=== PATIENT | male | born 1980 | race Caucasian/White ===

== ENCOUNTER 2024-10-02 08:11 | Emergency (ER) | payer OTHER, SELFPAY ==
[2024-10-02] VITALS (16 sets, daily range): BP systolic 120–144; BP diastolic 82–90; PULSE 74–98; RESP 14–25; TEMP 36.4; O2SAT 98–100
--- NOTE | ~2024-10-02 | XR_ITS ---
EXAMINATION: XR chest 2V, 10/02/2024 8:45 CDT HISTORY: chest pain LT C.P. N/V INTERMITTANT X 4 DAYS COMPARISON: No comparisons available. Technique: 2 views obtained. Findings: The lungs are clear, no effusion. No pneumothorax. Heart is normal size. Mediastinal and hilar contours are within normal limits. Bony thorax no acute abnormality. Impression: No acute cardiopulmonary abnormality. Reviewed, dictated and finalized at location A. Impression: No acute cardiopulmonary abnormality.
--- NOTE | 2024-10-02 08:12 | ECG_ITS ---
Test Date: 2024-10-02 08:18:11 Measurements Intervals [place] Rate: 88 P: 57 TN: 158 QRS: 20 QRSD: 93 T: 42 QT: 322 QTc: 391 Interpretive Statements SINUS RHYTHM CONSIDER INFERIOR INFARCT, AGE INDETERMINATE BASELINE ARTIFACT- I, II, III ABNORMAL ECG No previous ECG available for comparison Electronically Signed On 10-02-2024 08:21:38 CDT by Marcus Kohler D.O.
--- OUTSIDE RECORDS SUMMARY | 2024-10-02 08:13 | XMS_ITS | Encounter Summary ---
Author Organization [facility] Address [address] [place] [address] Phone Care Team Providers Care Tripe Cooker Name Role Phone Laura Quiroz APRN, COLLAR TAILOR Primary Care Provider Iván Dinero Primary Care Provider Arcelia Merlos APRN, PACHECO Unavailable Reason for Visit * Reason Comments Medication Refill Encounter Details Date Type Department Care Team (Late st Contact Info) Description 02/02/2022 Refill [facility] - Primary Care - [place] [address] [place] [address] Laura Quiroz APRN, COLLAR TAILOR [address] [place] [address] Medication Refill Social History Tobacco Use Types Packs/Day Years Used Date Smoking Tobacco: Every Day Cigarettes 0.5 3.1 Started: 09/08/2021 Smokeless Tobacco: Former Alcohol Use Standard Drinks/Week Comments Yes 0 (1 standard drink = 0.6 oz pur e alcohol) Socially Sex and Gender Information Value Date Recorded Sex Assigned at Not on file Legal Sex Male 9:07 AM PLANNING AIDE Gender Identity Not on file Sexual Orientation Not on file COVID-19 Exposure Response Date Recorded In the last 10 days, have yo u been in contact with someone who was confirmed or suspected to have Coronavirus/COVID-19? No / Unsure 01/03/2022 8:03 AM PLANNING AIDE documented as of this encounter Miscellaneous Notes * Telephone Encounter - Iza Bautista RN - 02/02/2022 3:53 PM CST Medication failed the protocol, provider to review and approve the medication order if appropriate. Requested Prescriptions Pending Prescriptions Disp Refills busPIRone (BUSPAR) 10 MG Tablet [Pharmacy Med Name: BUSPIRONE HCL 10 MG TABLET] 90 Tablet 0 Sig: TAKE 1 TABLET BY MOUTH 3 TIMES DAILY FOR 30 DAYS. Buspirone (6 Month Refill Only) Protocol Failed - 02/02/2022 3:47 PM Failed - Patient has established therapy with Buspirone for at least 6 months Passed - Visit with relevant provider in past 6 months or upcoming 90 days Recent Visits Date Type Provider Dept 01/03/22 Office Visit Laura Quiroz APRN, PACHECO [facility] 12/01/21 Office Visit Iván Dinero, SHAVON [facility] 09/15/21 Office Visit Laura Quiroz APRN, PACHECO [facility] Showing recent visits within past 182 days and meeting all other requirements Future Appointments No visits were found meeting these conditions. Showing future appointments within next 90 days and meeting all other requirements Passed - Has an encounter in the past 6 months with a depression or anxiety visit diagnosis NING AIDE documented in this encounter Plan of Treatment Upcoming Encounters Date Type Department Care Team (Late st Contact Info) Description 10/04/2024 3:30 PM CDT Lab [facility] - [place] [address] [place] [address] [facility] 12/05/2024 3:30 PM CDT Lab [facility] - [place] [address] [place] [address] [facility] 12/12/2024 3:45 PM PLANNING AIDE Office Visit [facility] - [place] [address] [place] [address] Iván Dinero, PAC [address] [place] [address] documented as of this encounter Visit Diagnoses Diagnosis Anxiety Anxiety state, unspecified Depression, unspecified depression type documented in this encounter Additional Health Concerns Infection Onset Date Last Indicated Resolved Time COVID - 19 02/02/2024 02/02/2024 02/02/2024 1:21 PM PLANNING AIDE Respiratory Rule-Out 02/02/2024 02/02/2024 024 1:23 PM PLANNING AIDE documented as of this encounter Care Teams Tripe Cooker Relationship Specialty Start Date End Date Laura Quiroz, CRYPTOLOGIC SUPPORT SPECIALIST, COLLAR TAILOR [address] [place] [address] PCP - General Advanced Practice Nurse 09/15/21 Iván Dinero, PAC [address] [place] [address] PCP - General Physician Graduate Assistant 10/03/22 Arcelia Merlos APRN, COLLAR TAILOR [address] [address] Nurse Practitioner Advanced Practice Nurse 10/13/22 documented as of this encounter
--- OUTSIDE RECORDS SUMMARY | 2024-10-02 08:13 | XMS_ITS | Patient Health Record ---
Author Organization [facility] Address [address] [place] [address] Care Team Providers Care Crabbing Machine Operator Name Role Phone Bandar Gonsalez Unavailable [phone] Reason For Referral No Information Medications Medication SIG (Take, Route, Frequency, Duration) Notes Start Date End Date Status metFORMIN HCl 500 MG Tablet Oral 11/21/2019 Active DULoxetine HCl 60 MG Capsule Delayed Release Particles Oral 11/21/2019 Active hydrOXYzine HCl 25 MG Tablet Oral 11/21/2019 Active Omeprazole *Pick strength-form from OMsignal for eRX* 11/21/2019 Active Social History Social History Additional Details Category Social Info Options Details Migrated Social History Migrated Social History Alcohol Intake: None 11/21/2019,Tobacco Years: Former smoker 10/30/2019,Smoking Status: 15 11/21/2019 Plan Of Treatment No Information Insurance Providers Payer Name Payer Address Payer Phone Subscriber Number Group Number Insured Name Patient Relationship to Insured Coverage Start Date Coverage End Date [facility] [address] [place] [address] [id number] SHANI ZAIDI Self - patient is the insured
--- OUTSIDE RECORDS SUMMARY | 2024-10-02 08:13 | XMS_ITS | Encounter Summary ---
Author Organization [facility] Address [address] [place] [address] Phone Care Team Providers Care Chief Pharmacist Name Role Phone Iván Dinero Primary Care Provider [phone] Arcelia Merlos APRN, PERSONAL COMPUTER NETWORK ENGINEER Unavailable Reason for Visit * Reason Onset Date Comments Medication Refill Constipation 01/12/2024 Encounter Details Date Type Department Care Team (Late st Contact Info) Description 01/12/2024 Nurse Triage [facility] - Primary Care - [place] [address] [place] [address] Iván Dinero, SHAVON [address] [place] [address] Medication Refill; Constipation Social History Tobacco Use Types Packs/Day Years Used Date Smoking Tobacco: Former Cigarettes 0.5 3.1 S tarted: 09/08/2021 Smokeless Tobacco: Former Alcohol Use Standard Drinks/Week Comments Not Currently 0 (1 standard drink = 0.6 oz pur e alcohol) Socially [employer] Utilities Answer Date Recorded In the past 12 months has [employer], gas, oil, or water company threatened to shut off services in your home? Patient declined 09/03/2023 Social Connection and Isolation Panel Answer Date Recorded In a typical week, how many times do you talk on the phone with family, friends, or neighbors? Patient declined 09/03/2023 How often do you get togethe r with friends or relatives? Patient declined 09/03/2023 How often do you attend worship or sikhism serv ices? Patient declined 09/03/2023 Do you belong to any clubs o r organizations such as worship groups, unions, fraternal or athletic groups, or school groups? Patient declined 09/03/2023 How often do you attend meet ings of the clubs or organizations you belong to? Patient declined 09/03/2023 Are you , , di vorced, , never , or living with a partner? Patient declined 09/03/2023 AUDIT-C Answer Date Recorded Q1: How often do you have a drink containing alc ohol? Patient declined 09/03/2023 Q2: How many drinks containi ng alcohol do you have on a typical day when you are drinking? Patient declined 09/03/2023 Q3: How often do you have si x or more drinks on one occasion? Patient declined 09/03/2023 Overall Financial Resource Strain (CARDIA) Answe r Date Recorded How hard is it for you to pa y for the very basics like food, housing, medical care, and heating? Patient declined 09/03/2023 PHQ-2 Answer Date Recorded Total Score - Questions 1-9 0 10/0 05/2023 [facility] - Occupational Stress Questionnaire Answer Date Recorded Do you feel stress - tense, restless, nervous, or anxious, or unable to sleep at night because your mind is troubled all the time - these days? Patient declined 09/03/2023 Exercise Vital Sign Answer Date Recorde d On average, how many days pe r week do you engage in moderate to strenuous exercise (like a brisk walk)? Patient declined On average, how many minutes do you engage in exercise at this level? Patient declined 09/03/2023 Hunger Vital Sign Answer Date Recorded Within the past 12 months, y ou worried that your food would run out before you got the money to buy more. Patient declined Within the past 12 months, t he food you bought just didn't last and you didn't have money to get more. Patient declined PRAPARE - Transportation Answer Date Re corded In the past 12 months, has l ack of transportation kept you from medical appointments or from getting medications? Patient declined 09/03/2023 In the past 12 months, has l ack of transportation kept you from meetings, work, or from getting things needed for daily living? Patient declined 09/03/2023 Housing Stability Vital Sign Answer Davonte e Recorded In the last 12 months, was t here a time when you were not able to pay the mortgage or rent on time? Patient declined 09/03/19 24 In the past 12 months, how m any times have you moved where you were living? 1 09/03/2023 At any time in the past 12 m [facility], were you homeless or living in a chcf (including now)? Patient declined 09/03/2023 Sexually Active Control Partners Comments Yes Female Sex and Gender Information Value Date Recorded Sex Assigned at Not on file Legal Sex Male 9:07 AM ACTIVITY AIDE Gender Identity Not on file Sexual Orientation Not on file documented as of this encounter Miscellaneous Notes * Telephone Encounter - Carrie Murillo RN - 01/12/2024 1:34 PM CST SITUATION: Constipation and returning phone call BACKGROUND: Caller contacting PCP office. Per chart review, - See notes below - See last office visit 12/04/2023 ASSESSMENT: Symptom Description / Location: Iván Dinero PAC's recommendations relayed to patient Iván Dinero, PAC Rx increased to 7.5mg dose. Please make patient aware. Patient verbalized understanding Reports worsening constipation This morning had a small bowel movement that was like ruth Reports before today there was Over a week since vomiting. Reports vomiting twice last week. Reports intermittent abdominal pain and states it's like gas pain. Denies abdominal pain today. Treatment / Response: Miralax Reports not much relief RECOMMENDATION: Caller agreeable to being seen, but is requesting to wait and be seen outside of disposition despite education provided. Patient reports working late today and will be unable to come into the office this afternoon. Options of Prompt/urgent care and emergency department offered to patient. Patient declined at this time. Care advice provided per triage guideline. Caller verbalized understanding. Appointment Scheduled. All Patient Appointments Provider Department Dept Phone 01/15/2024 2:15 PM Iván Dinero [facility] - Primary Care [facility] [phone] 02/28/2024 4:00 PM [facility] - Primary Care - [place] [phone] 03/06/2024 4:00 PM Iván Dinero [facility] Primary [facility] - [place] [phone] Encounter routed to provider high priority to notify. Discussed utilizing [employer] to: E-check in prior to upcoming appointment, send a message to provider containing image for review, and test results. Link text to patient for [employer] set up. - See care advice and disposition for Guideline. First positive answer recorded, all responses to prior questions were negative. If symptoms increase, change or if new symptoms develop, call your health care provider or call back. Recommendations were based on caller information and is not a diagnosis. Verified and reviewed all triage information with caller. Reason for Disposition Rectal pain or fullness from fecal impaction (rectum full of stool) and NOT better after SITZ bath,suppository or enema Protocols used: [id number]-A-LD VITY AIDE * Telephone Encounter - Carrie Dutta RN - 01/12/2024 9:27 AM ACTIVITY AIDE Attempted to phone patient to relay PCP message. No answer. Voicemail left to call the office. VITY AIDE * Telephone Encounter - Iván Dinero PAC - 01/12/2024 9:23 AM CST Rx increased to 7.5mg dose. Please make patient aware. VITY AIDE * Telephone Encounter - Carrie Dutta RN - 01/12/2024 8:00 AM ACTIVITY AIDE SHOULD THIS BE INCREASED? Per nursing clinical judgement, provider to review and approve the medication(s) order(s) if appropriate. Requested Prescriptions Pending Prescriptions Disp Refills Mounjaro 5 MG/0.5ML Solution Auto-injector [Pharmacy Med Name: MOUNJARO 5 MG/0.5 ML PEN] Sig: INJECT 5 MG BY SUBCUTANEOUS ROUTE ONCE A WEEK. GLP-1 Agonists Protocol Passed - 01/12/2024 5:05 AM Passed - Lipid panel result on file in past 12 months LDL Date Value Ref Range Status 08/28/2023 65 <130 mg/dL Final HDL CHOLESTEROL Date Value Ref Range Status 08/28/2023 35 (L) >40 mg/dL Final CHOLESTEROL Date Value Ref Range Status 08/28/2023 141 <200 mg/dL Final TRIGLYCERIDES Date Value Ref Range Status 08/28/2023 205 (H) <150 mg/dL Final VLDL Date Value Ref Range Status 08/28/2023 41 10 - 50 mg/dL Final CHOL/HDL RATIO Date Value Ref Range Status 08/28/2023 4.0 0.0 - 4.4 Final NON-HDL CHOLESTEROL Date Value Ref Range Status 08/28/2023 106 <130 mg/dL Final Passed - Visit with relevant provider in past 6 months or upcoming 90 days Recent Visits Date Type Provider Dept 12/04/23 Office Visit Iván Dinero, PAC [facility] 11/10/23 Office Visit Kari Long, B2B SALES CONSULTANT, PERSONAL COMPUTER NETWORK ENGINEER [facility] 09/07/23 Office Visit Iván Dinero, PAC [facility] 08/31/23 Office Visit Iván Dinero, PAC [facility] Showing recent visits within past 182 days and meeting all other requirements Future Appointments Date Type Provider Dept 02/28/24 Appointment Lab, [facility] 03/06/24 Appointment Iván Dinero [facility] Showing future appointments within next 90 days and meeting all other requirements Passed - HgA1C result on record in past 6 months HGB-A1C Date Value Ref Range Status 11/24/2023 6.2 (H) 4.0 - 6.0 % Final Passed - GFR on record in past 6 months GFR, EST. NONAFRICAN Date Value Ref Range Status 11/24/2023 >60 >=60 Final VITY AIDE documented in this encounter Plan of Treatment Upcoming Encounters Date Type Department Care Team (Late st Contact Info) Description 10/04/2024 3:30 PM CDT Lab [facility] - [place] [address] [place] [address] [facility] 12/05/2024 3:30 PM CDT Lab [facility] [address] [place] [address] [facility] 12/12/2024 3:45 PM ACTIVITY AIDE Office Visit [facility] - [place] [address] [place] [address] Iván Dinero PAC [address] [place] [address] documented as of this encounter Visit Diagnoses Diagnosis Type 2 diabetes mellitus with other specified complication, without long-term current use of insulin documented in this encounter Additional Health Concerns Infection Onset Date Last Indicated Resolved Time COVID - 19 02/02/2024 02/02/2024 02/02/2024 1:21 PM ACTIVITY AIDE Respiratory Rule-Out 02/02/2024 02/02/2024 024 1:23 PM ACTIVITY AIDE Assessment Noted Time PHQ-9 Depression Total Score: 0 11/10/19 24 10:02 AM CDT documented as of this encounter Care Teams Chief Pharmacist Relationship Specialty Start Date End Date Iván Dinero PAC [address] [place] [phone] PCP - General Physician Tool Machine Set Up Operator 10/03/22 Arcelia Merlos B2B SALES CONSULTANT, PERSONAL COMPUTER NETWORK ENGINEER [address] [address] Nurse Practitioner Advanced Practice Nurse 10/13/22 documented as of this encounter
--- OUTSIDE RECORDS SUMMARY | 2024-10-02 08:13 | XMS_ITS | Clinical Summary ---
Author Organization [facility] Address [address] [place] [phone] Care Team Providers Care Plate Embosser Name Role Phone Unavailable Primary Care Provider Unavailabl e Active Problems No known active problems Social History Tobacco Use Types Packs/Day Years Used Date Smoking Tobacco: Never Assessed Sex and Gender Information Value Date Recorded Sex Assigned at Not on file Legal Sex Male 3:31 PM CDT Gender Identity Not on file Sexual Orientation Not on file Last Filed Vital Signs Vital Sign Reading Time Taken Comments Blood Pressure 118/80 06/12/2023 2:24 PM CDT Pulse - - Temperature - - Respiratory Rate - - Oxygen Saturation - - Inhaled Oxygen Concentration - - Weight 125.6 kg (277 lb) 06/12/2023 2:24 PM CDT Height 180.3 cm (5' 11) 06/12/2023 2:24 PM CDT Body Mass Index 38.63 06/12/2023 2:24 PM CDT Plan of Treatment Health Maintenance Due Date Last Done Comments HPV VACCINES (1 - Male 3-dose series) 1996 DTAP/TDAP/TD VACCINES (1 - Tdap) 2000 HEPATITIS B VACCINES (1 of 3 - 19+ 3-dose series) 05/08 INFLUENZA VACCINE (#1) 2024 Insurance [employer]LE[employer]ANCE OPEN ACCESS
--- OUTSIDE RECORDS SUMMARY | 2024-10-02 08:13 | XMS_ITS | Encounter Summary ---
Author Organization [facility] Address [address] [place] [address] Phone Care Team Providers Care Revenue Field Agent Name Role Phone Iván Dinero Primary Care Provider [phone] Arcelia Merlos APRN, MAINTENANCE MECHANIC TELEPHONE Unavailable Encounter Details Date Type Department Care Team (Late st Contact Info) Description 08/31/2024 Results Follow-Up [facility] - Primary Care - [place] [address] [place] [address] Iván Dinero, PAC [address] [place] [address] HEMOGLOBIN A1C W/ ESTIMATED GLUCOSE, CMP (COMPREHENSIVE METABOLIC PANEL), LIPID PANEL, Additional followed-up results: 4 Social History Tobacco Use Types Packs/Day Years Used Date Smoking Tobacco: Former Cigarettes 0.5 3.1 S tarted: 09/08/2021 Smokeless Tobacco: Former Alcohol Use Standard Drinks/Week Comments Not Currently 0 (1 standard drink = 0.6 oz pur e alcohol) Socially [employer] Utilities Answer Date Recorded In the past 12 months has [employer], gas, oil, or water company threatened to [...] declined 09/03/2023 How often do you attend adventist or yarsani serv ices? Patient declined 09/03/2023 Do you belong to any clubs o r organizations such as adventist groups, unions, fraternal or athletic groups, or [...] Recorded Total Score - Questions 1-9 0 06/0 05/2024 [facility] - [facility]ational Stress Questionnaire Answer Date Recorded [...] any time in the past 12 m [facility], were you homeless or living in a intermediate (including now)? Patient declined 09/03/2023 Sexually Active Control Partners Comments Yes Female Sex and Gender Information Value Date Recorded Sex Assigned at Not on file Legal Sex Male 9:07 AM STOCK SUPERVISOR Gender Identity Not on file Sexual Orientation Not on file documented as of this encounter Plan of Treatment Upcoming Encounters Date Type Department Care Team (Late st Contact Info) Description 10/04/2024 3:30 PM CDT Lab [facility] - [place] [address] [place] [phone] [facility] 12/05/2024 3:30 PM CDT Lab [facility] - [place] [address] [place] [address] [facility] 12/12/2024 3:45 PM STOCK SUPERVISOR Office Visit [facility] - [place] [address] [place] [address] Iván Dinero PAC [address] [place] [address] documented as of this encounter Visit Diagnoses Not on filedocumented in this encounter Additional Health Concerns Assessment Noted Time PHQ-9 Depression Total Score: 0 07/11/19 25 2:03 PM CDT documented as of this encounter Care Teams Revenue Field Agent Relationship Specialty Start Date End Date Iván Dinero PAC [address] [place] [address] PCP - General Physician Supervisor Ovens 10/03/22 Arcelia Merlos APRN, MAINTENANCE MECHANIC TELEPHONE #[address] [address] Nurse Practitioner Advanced Practice Nurse 10/13/22 documented as of this encounter
--- OUTSIDE RECORDS SUMMARY | 2024-10-02 08:13 | XMS_ITS | Encounter Summary ---
Author Organization [facility] Address [address] [place] [address] Phone Care Team Providers Care Take Away Worker Name Role Phone Laura Quiroz APRN, PACHECO Primary Care Provider Iván Dinero Primary Care Provider [phone] Arcelia Merlos APRN, CNP Unavailable Reason for Visit * Reason Comments Medication Refill Encounter Details Date Type Department Care Team (Late st Contact Info) Description 09/08/2022 Refill [facility] - Primary Care - [place] [address] [place] [address] Laura Quiroz APRN, [employer] [address] [place] [address] Medication Refill Social History Tobacco Use Types Packs/Day Years Used Date Smoking Tobacco: Every Day Cigarettes 0.5 3.1 Started: 09/08/2021 Smokeless Tobacco: Former Alcohol Use Standard Drinks/Week Comments Yes 0 (1 standard drink = 0.6 oz pur e alcohol) Socially Sex and Gender Information Value Date Recorded Sex Assigned at Not on file Legal Sex Male 9:07 AM FEATHER STITCHER Gender Identity Not on file Sexual Orientation Not on file documented as of this encounter Miscellaneous Notes * Telephone Encounter - Iván Dinero PAC - 09/12/2022 1:47 PM CDT Rx request approved. * Telephone Encounter - Iza Bautista RN - 09/12/2022 11:49 AM CDT Medication failed the protocol, provider to review and approve the medication order if appropriate. Requested Prescriptions Pending Prescriptions Disp Refills buPROPion (WELLBUTRIN) 300 MG TABLET SR 24 HR XL tablet [Pharmacy Med Name: BUPROPION HCL XL 300 MGTABLET] 30 Tablet 5 Sig: TAKE 1 TABLET BY MOUTH EVERY DAY IN THE MORNING Bupropion (6 Month Refill Only) Protocol Failed - 09/08/2022 12:01 AM Failed - Visit with relevant provider in past 6 months or upcoming 90 days Recent Visits No visits were found meeting these conditions. Showing recent visits within past 182 days and meeting all other requirements Future Appointments Date Type Provider Dept 10/03/22 Appointment Iván Dinero PAC [facility] Showing future appointments within next 90 days and meeting all other requirements Failed - Has an encounter in the past 6 months with a depression or anxiety visit diagnosis Passed - Patient has established therapy with Bupropion for at least 6 months * Telephone Encounter - Iza Bautista RN - 09/12/2022 11:48 AM CDT Pt scheduled for transfer of care with Iávn Dinero on 10/03/22. * Telephone Encounter - Carrie Dutta RN - 09/09/2022 8:40 AM CDT Attempted to call patient, no answer at this time and voicemail is not set up. * Telephone Encounter - Iza Bautista RN - 09/08/2022 2:23 PM CDT Attempted to call pt to schedule a transfer of care appt, no answer, unable to LVM for pt to call back. documented in this encounter Plan of Treatment Upcoming Encounters Date Type Department Care Team (Late st Contact Info) Description 10/04/2024 3:30 PM CDT Lab [facility] [place] [address] [place] [phone] [facility] 12/05/2024 3:30 PM CDT Lab [facility] [place] [address] [place] [phone] [facility] 12/12/2024 3:45 PM FEATHER STITCHER Office Visit [facility] [place] [address] [place] [phone] Iván Dinero PAC [address] [place] [address] documented as of this encounter Visit Diagnoses Diagnosis Anxiety Anxiety state, unspecified Depression, unspecified depression type documented in this encounter Additional Health Concerns Infection Onset Date Last Indicated Resolved Time COVID - 19 02/02/2024 02/02/2024 02/02/2024 1:21 PM FEATHER STITCHER Respiratory Rule-Out 02/02/2024 02/02/2024 024 1:23 PM FEATHER STITCHER documented as of this encounter Care Teams Take Away Worker Relationship Specialty Start Date End Date Laura Quiroz, RESOLUTION REP, [employer] [address] [place] [address] PCP - General Advanced Practice Nurse 09/15/21 Iván Dinero, PAC [address] [place] [phone] PCP - General Physician Guidance Counselor 10/03/22 Arcelia Merlos APRN, [employer] [address] [place] [address] Nurse Practitioner Advanced Practice Nurse 10/13/22 documented as of this encounter
--- OUTSIDE RECORDS SUMMARY | 2024-10-02 08:13 | XMS_ITS | Encounter Summary ---
Author Organization [facility] Address [address] [place] [address] Phone Care Team Providers Care Gate Agent Name Role Phone Iván Dinero Primary Care Provider [phone] Arcelia Merlos APRN, PASTRY ARTIST Unavailable [phone] Reason for Visit * Reason Comments Medication Refill Encounter Details Date Type Department Care Team (Late st Contact Info) Description 11/20/2023 Refill [facility] - Primary Care - [place] [address] [place] [address] Iván Dinero, [facility] [address] [place] [address] Medication Refill Social History Tobacco Use Types Packs/Day Years Used Date Smoking Tobacco: Former Cigarettes 0.5 3.1 S tarted: 09/08/2021 Smokeless Tobacco: Former Alcohol Use Standard Drinks/Week Comments Not Currently 0 (1 standard drink = 0.6 oz pur e alcohol) Socially [facility] Utilities Answer Date Recorded In the past 12 months has [employer] electric, gas, oil, or water company threatened to [...] declined 09/03/2023 How often do you attend christian or holiness serv ices? Patient declined 09/03/2023 Do you belong to any clubs o r organizations such as christian groups, unions, fraternal or athletic groups, or [...] Score - Questions 1-9 0 10/0 05/2023 [facility] - Occupational Stress [...] any time in the past 12 m [facility], were you homeless or living in a prison (including now)? Patient declined 09/03/2023 Sexually Active Control Partners Comments Yes Female Sex and Gender Information Value Date Recorded Sex Assigned at Not on file Legal Sex Male 9:07 AM EXPLOSIVE TECHNICIAN Gender Identity Not on file Sexual Orientation Not on file documented as of this encounter Miscellaneous Notes * Telephone Encounter - Simone Baird RN - 11/20/2023 1:25 PM CDT discontinued on 09/05/2023 by Carrie Dutta RN for the following reason: Formulary change documented in this encounter Plan of Treatment Upcoming Encounters Date Type Department Care Team (Late st Contact Info) Description 10/04/2024 3:30 PM CDT Lab [facility] - [place] [address] [place] [phone] [facility] 12/05/2024 3:30 PM CDT Lab [facility] - [place] [address] [place] [phone] [facility] 12/12/2024 3:45 PM EXPLOSIVE TECHNICIAN Office Visit [facility] - [place] [address] [place] [phone] Iván Dinero, SHAVON [address] [place] [phone] documented as of this encounter Visit Diagnoses Diagnosis Anxiety and depression Dysthymic disorder documented in this encounter Additional Health Concerns Infection Onset Date Last Indicated Resolved Time COVID - 19 02/02/2024 02/02/2024 02/02/2024 1:21 PM EXPLOSIVE TECHNICIAN Respiratory Rule-Out 02/02/2024 02/02/2024 024 1:23 PM EXPLOSIVE TECHNICIAN Assessment Noted Time PHQ-9 Depression Total Score: 0 11/10/19 24 10:02 AM CDT documented as of this encounter Care Teams Gate Agent Relationship Specialty Start Date End Date Iván Dinero, PAC [address] [place] [address] PCP - General Physician Case Management Rn 10/03/22 Arcelia Merlos APRN, PASTRY ARTIST [address] [address] Nurse Practitioner Advanced Practice Nurse 10/13/22 documented as of this encounter
--- OUTSIDE RECORDS SUMMARY | 2024-10-02 08:13 | XMS_ITS | Clinical Summary ---
Author Organization [facility] Address [address] [place] [address] Care Team Providers Care Temperature Regulator Pyrometer Name Role Phone Iván Dinero Primary Care Provider [phone] Arcelia Merlos APRN, CRISIS COUNSELOR Unavailable [phone] Allergies No known active allergies Medications omeprazole (PriLOSEC) 40 MG CAPSULE DELAYED RELEASEIndications :Gastroesophageal reflux disease, unspecified whether esophagitis present Take 1 Capsule by mouth daily. 90 Capsule 3 12/04/19 24 Active famotidine (PEPCID) 20 MG TabletIndications: Gastroesophageal reflux disease, unspecified whether esophagitis present Take 1 Tablet by mouth every evening. 90 Tablet 3 12/04/19 24 Active Polyethylene Glycol 3350 (MIRALAX PO) Take by mouth. Ac tive atorvastatin (LIPITOR) 20 MG TabletIndications: Hyperlipidemia, unspecified hyperlipidemia type TAKE 1 TABLET BY MOUTH EVERY DAY 90 Tablet 1 04/09/19 25 Active buPROPion (WELLBUTRIN) 300 MG TABLET SR 24 HR XL tabletIndications: Anxiety,Depression , unspecified depression type TAKE 1 TABLET BY MOUTH EVERY DAY IN THE MORNING 90 Tablet 1 04/09/19 25 Active venlafaxine (EFFEXOR-XR) 75 MG CAPSULE SR 24 HR TAKE 1 CAPSULE BY MOUTH EVERY DAY 90 Capsule 08/15/19 25 Active Tirzepatide (Mounjaro) 7.5 MG/0.5ML Solution Auto-injectorIndic ations:Type 2 diabetes mellitus with other specified complication, without long-term current use of insulin 0.5 mL by Subcutaneous route once a week. 6 mL 07/14/20 25 Active metFORMIN (GLUCOPHAGE-XR) 500 MG TABLET SR 24 HRIndications:Type 2 diabetes mellitus without complication, without long-term current use of insulin Take 1 Tablet by mouth daily. This RX is for Metformin SR. 90 Tablet 3 09/05/19 25 Active metFORMIN (GLUCOPHAGE) 1000 MG TabletIndications: Type 2 diabetes mellitus with other specified complication, without long-term current use of insulin Take 1 Tablet by mouth 2 times daily (with meals). 180 Tablet 3 12/04/19 24 025 Discontin ued(Alter wojciech therapy) Active Problems Problem Noted Date Diagnosed Date Ureterolithiasis 09/03/2023 Anxiety and depression 07/06/2023 DEJUAN (obstructive sleep apnea) 10/13/2022 Personal history of tobacco use 10/13/2022 Kidney disease Overview (09/04/2023): Kidney stones Diabetes mellitus Encounters Date Type Department Care Team Description 09/04/2024 4:00 PM CDT Office Visit [facility] [address] [place] [address] Iván Dinero PAC Type 2 diabetes mellitus without complication, without long-term current use of insulin (Primary Dx); Hyperkalemia; High serum thyroid stimulating hormone (TSH); Leukocytosis, unspecified type Discharge Disposition: Discharged to home or Selfcare 09/04/2024 Travel 08/31/2024 Results Follow-Up [facility] [address] [place] [address] Iván Dinero PAC HEMOGLOBIN A1C W/ ESTIMATED GLUCOSE, CMP (COMPREHENSIVE METABOLIC PANEL), LIPID PANEL, Additional followed-up results: 4 08/28/2024 4:00 PM CDT Lab [facility] [place] [address] Rigo Sanford Spike Type 2 diabetes mellitus without complication, without long-term current use of insulin; Anxiety and depression; DEJUAN (obstructive sleep apnea) Discharge Disposition: Discharged to home or Selfcare 08/28/2024 Travel 08/19/2024 Refill [facility] [place] [address] [place] [address] Iván Dinero, SHAVON Medication Refill 08/14/2024 Refill [facility] [address] [place] [phone] Iván Dinero PAC Medication Refill 07/29/2024 Telephone [facility] [address] [place] [phone] Iván Dinero PAC Form Completion (FMLA) 07/29/2024 Documentation Only [facility] [address] [place] [phone] Iván Dinero PAC 07/10/2024 2:15 PM CDT Office Visit [facility] [place] [address] [place] [address] Iván Dinero, PAC Type 2 diabetes mellitus with other specified complication, without long-term current use of insulin (Primary Dx); Nausea and vomiting, unspecified vomiting type; Side effect of medication Discharge Disposition: Discharged to home or Selfcare 07/10/2024 Travel 07/08/2024 Telephone [facility] [address] [place] [phone] Iván Dinero, SHAVON Appointment from Last 3 Months Family History Relation Name Status Comments Brother Alive Father Alive Mother Alive Sister Alive Social History Tobacco Use Types Packs/Day Years Used Date Smoking Tobacco: Former Cigarettes 0.5 3.1 S tarted: 09/08/2021 Passive Smoke Exposure: Past Smokeless Tobacco: Former Tobacco Cessation:Counseling Given: No Alcohol Use Standard Drinks/Week Comments Not Currently 0 (1 standard drink = 0.6 oz pur e alcohol) Socially [facility] Utilities Answer Date Recorded In the past 12 months has [employer], gas, oil, or water [employer] threatened to shut off services in your home? Patient declined 09/03/2023 Social Connection and Isolation Panel Answer Date Recorded In a typical week, how many times do you talk on the phone with family, friends, or neighbors? Patient declined 09/03/2023 How often do you get togethe r with friends or relatives? Patient declined 09/03/2023 How often do you attend pentecostal or jain serv ices? Patient declined 09/03/2023 Do you belong to any clubs o r organizations such as pentecostal groups, unions, fraternal or athletic groups, or [...] Score - Questions 1-9 0 06/0 05/2024 [facility] - Occupational Stress Questionnaire Answer Date [...] any time in the past 12 m [facility], were you homeless or living in a assisted (including now)? Patient declined 09/03/2023 Sexually Active Control Partners Comments Yes Female Sex and Gender Information Value Date Recorded Sex Assigned at Not on file Legal Sex Male 9:07 AM GROUP DIRECTOR EXPERIENCE Gender Identity Not on file Sexual Orientation Not on file Last Filed Vital Signs Vital Sign Reading Time Taken Comments Blood Pressure 110/62 09/04/2024 3:59 PM CDT Pulse 96 09/04/2024 3:59 PM CDT Temperature 37.3 C (99.1 F) 09/04/2024 3:59 PM CDT Respiratory Rate 18 09/04/2024 3:59 PM CDT Oxygen Saturation 97% 09/04/2024 3:59 PM CDT Inhaled Oxygen Concentration - - Weight 93.4 kg (206 lb) 09/04/2024 3:59 PM CDT Height 180.3 cm (5' 11) 11/10/2023 10:00 AM CDT Body Mass Index 28.73 11/10/2023 10:00 AM CDT Plan of Treatment Upcoming Encounters Date Type Department Care Team (Late st Contact Info) Description 10/04/2024 3:30 PM CDT Lab [facility] [place] [address] [facility] 12/05/2024 3:30 PM CDT Lab [facility] [place] [address] [facility] 12/12/2024 3:45 PM GROUP DIRECTOR EXPERIENCE Office Visit [facility] - [place] [address] [place] [address] Iván Dinero, PAC [address] [place] [address] Health Maintenance Due Date Last Done Comments Hepatitis C Virus (HCV) Screening 1981 TdaP Immunization 1981 Hepatitis B Immunization (1 of 3 - 19+ 3-dose series) 2000 Pneumococcal Immunization Combined (1 of 2 - PCV) 2000 Human Papillomavirus (HPV) Immunization (1 - 3-dose SCDM series) 2008 SARS-COV-2 Immunization ( season) 2023 12/18/2020, 10/14/2020 Diabetes: Eye Exam 08/04/2024 08/05/2023, 08/05/2023 Influenza Immunization (#1) 2024 Diabetes: Hemoglobin A1c 02/28/2025 025, 02/28/2024, 11/24/2023, Additional history exists Diabetes: Nephropathy Screening 08/28/2025 08/28/2024, 11/24/2023, 09/03/2023, Additional history exists Diabetes: Foot Exam 09/04/2025 09/04/2024, 09/04/2024, 09/04/2024 Respiratory Syncytial Virus (RSV) Immunization (Adult) (1 - 1-dose 75+ series) 2056 Meningococcal Immunization (ACWY) Aged Out No longer eligible based on patient's age to complete this topic Rotavirus Immunization Aged Out No lo nger eligible based on patient's age to complete this topic Procedures Procedure Name Priority Date/Time Associated Diagnosis Comments THYROID SCREEN WITH REFLEX Routine 08/28/2024 3:29 PM CDT Anxiety and depression DEJUAN (obstructive sleep apnea) CBC WITH AUTO DIFFERENTIAL Routine 08/28/2024 3:29 PM CDT Type 2 diabetes mellitus without complication, without long-term current use of insulin ANTI THYROID PEROXIDASE ANTIBODY Routine 08/28/2024 3:29 PM CDT Anxiety and depression DEJUAN (obstructive sleep apnea) THYROXINE (T4) FREE Routine 08/28/2024 3 :29 PM CDT Anxiety and depression DEJUAN (obstructive sleep apnea) THYROID SCREEN WITH REFLEX Routine 08/28/2024 3:29 PM CDT Anxiety and depression DEJUAN (obstructive sleep apnea) LIPID PANEL Routine 08/28/2024 3:29 PM CDT Type 2 diabetes mellitus without complication, without long-term current use of insulin CMP (COMPREHENSIVE METABOLIC PANEL) Routine 08/28/2024 3:29 PM CDT Type 2 diabetes mellitus without complication, without long-term current use of insulin HEMOGLOBIN A1C W/ ESTIMATED GLUCOSE Routine 08/28/2024 3:29 PM CDT Type 2 diabetes mellitus without complication, without long-term current use of insulin COMPLETE BLOOD COUNT (CBC) WITH DIFF Routine 08/28/2024 3:29 PM CDT Type 2 diabetes mellitus without complication, without long-term current use of insulin HM DILATED EYE EXAM 08/05/2023 1 2:00 AM CDT from Last 3 Months or Most Recently Relevant to Health Maintenance Results * (ABNORMAL) THYROID SCREEN WITH REFLEX (08/28/2024 3:29 PM CDT) TSH 5.569(H) 0.300 - 5.000 mIU/L 08/29/2024 8:53 AM CDT [facility] Blood Venipuncture / Unknown 08/28/2024 3:29 PM CDT 08/28/2024 3:29 PM CDT us Iván Dinero PAC CHEMISTRY ORDERABLES Final R esult [facility] [address] [place] [address] * HEMOGLOBIN A1C W/ ESTIMATED GLUCOSE (08/28/2024 3:29 PM CDT) Pathologist [facility] HGB-A1C 5.1 4.0 - 6.0 % 08/29/2024 8:37 AM CDT [facility] Est Average Glucose 99.7 mg/dL 08/29/2024 8:37 AM CDT [facility] Blood Venipuncture / Unknown 08/28/2024 3:29 PM CDT 08/28/2024 3:29 PM CDT Narrative [facility] - 08/29/2024 8:37 AM CDT HEMOGLOBIN A1C: DIABETIC PATIENTS: WELL-CONTROLLED: 6.2 - 7.0 INTERMEDIATE WELL-CONTROLLED: 7.0 - 9.0 POORLY-CONTROLLED: >9.0 Specimens containing greater than 5% of Hemoglobin F may result in lower than expected % HbA1C results. Iván Dinero PAC CHEMISTRY ORDERABLES Final R esult Performing Organization Address [facility] Co de Phone Number [facility] [address] [place] [address] * (ABNORMAL) CBC WITH AUTO DIFFERENTIAL (08/28/2024 3:29 PM CDT) Pathologist [facility] WBC 15.13(H) 4.00 - 12.00 10(3)/mcL 08/29/2024 8:28 AM CDT [facility] RBC 4.54 4.40 - 5.80 10(6)/mcL 08/29/2024 8:28 AM CDT [facility] HEMOGLOBIN (HGB) 13.8 13.0 - 16.5 g/dL 08/29/2024 8:28 AM CDT [facility] HEMATOCRIT (HCT) 42.8 38.0 - 50.0 % 08/29/2024 8:28 AM CDT [facility] MCV 94.3 82.0 - 96.0 fL 08/29/2024 8:28 AM CDT [facility] MCH 30.4 26.0 - 32.0 pg 08/29/2024 8:28 AM CDT [facility] MCHC 32.2 31.0 - 36.0 g/dL 08/29/2024 8:28 AM CDT [facility] PLATELET COUNT 386 140 - 440 10(3)/mcL 08/29/2024 8:28 AM CDT [facility] RDW 11.9 11.8 - 15.5 % 08/29/2024 8:28 AM CDT [facility] MPV 11.7 8.0 - 12.6 fL 08/29/2024 8:28 AM CDT [facility] NEUTROPHILS 58.7 40.0 - 68.0 % 08/29/2024 8:28 AM CDT [facility] LYMPHOCYTES 26.2 19.0 - 49.0 % 08/29/2024 8:28 AM CDT [facility] MONOCYTES 7.5 3.0 - 13.0 % 08/29/2024 8:28 AM CDT [facility] EOSINOPHILS 6.0 0.0 - 8.0 % 08/29/2024 8:28 AM CDT [facility] BASOPHILS 1.1(H) 0.0 - 1.0 % 08/29/2024 8:28 AM CDT [facility] IMMATURE GRANULOCYTE 0.5(H) 0.0 - 0.4 % 08/29/2024 8:28 AM CDT [facility] Comment:Immature Granulocyte s includes Metamyelocytes, Myelocytes, and Promyelocytes. ABSOLUTE NEUTROPHILS 8.87(H) 1.40 - 5.30 10(3)/mcL 08/29/2024 8:28 AM CDT [facility] ABSOLUTE LYMPHOCYTES 3.97(H) 0.90 - 3.30 10(3)/mcL 08/29/2024 8:28 AM CDT [facility] ABSOLUTE MONOCYTES 1.14(H) 0.10 - 0.90 10(3)/mcL 08/29/2024 8:28 AM CDT [facility] ABSOLUTE EOSINOPHIL 0.91(H) 0.00 - 0.50 10(3)/[facility] 08/29/2024 8:28 AM CDT [facility] ABSOLUTE BASOPHILS 0.16(H) 0.00 - 0.10 10(3)/mcL 08/29/2024 8:28 AM CDT [facility] ABSOLUTE IMMATURE GRANULOCYTE 0.08(H) 0.00 - 0.03 10 (3) mcL. 08/29/2024 8:28 AM CDT [facility] NRBC PER 100 WBC 0 08/30/19 8:28 AM CDT [facility] Blood Venipuncture / Unknown 08/28/2024 3:29 PM CDT 08/28/2024 3:29 PM CDT Iván Dinero PAC HEMATOLOGY ORDERABLES Final Result Performing Organization Address City/[facility]/ZIP Co de Phone Number [facility] [address] [place] [address] * THYROXINE (T4) FREE (08/28/2024 3:29 PM CDT) [facility] T4 FREE 1.0 0.7 - 1.9 ng/dL 08/29/2024 9:24 AM CDT [facility] Blood Venipuncture / Unknown 08/28/2024 3:29 PM CDT 08/28/2024 3:29 PM CDT Iván Dinero PAC CHEMISTRY ORDERABLES Final R esult [facility] [address] [place] [address] * (ABNORMAL) LIPID PANEL (08/28/2024 3:29 PM CDT) CHOLESTEROL 149 <200 mg/dL 08/29/2024 8:37 AM CDT [facility] TRIGLYCERIDES 109 <150 mg/dL 08/29/2024 8:37 AM CDT [facility] HDL CHOLESTEROL 40(L) >40 mg/dL 8:37 AM CDT [facility] LDL 87 <130 mg/dL 08/29/2024 8:37 AM CDT [facility] VLDL 22 10 - 50 mg/dL 08/29/2024 8:37 AM CDT [facility] CHOL/HDL RATIO 3.7 0.0 - 4.4 08/29/2024 8:37 AM CDT [facility] NON-HDL CHOLESTEROL 109 <130 mg/dL 08/29/2024 8:37 AM CDT [facility] IS THE PATIENT REQUIRED TO BE FASTING? Yes 08/29/2024 8:37 AM CDT [facility] HAS THE PATIENT BEEN FASTING? Yes 08/29/2024 8:37 AM CDT [facility] Blood Venipuncture / Unknown 08/28/2024 3:29 PM CDT 08/28/2024 3:29 PM CDT us Iván Dinero PAC CHEMISTRY ORDERABLES Final R esult [facility] [address] [place] [address] * (ABNORMAL) CMP (COMPREHENSIVE METABOLIC PANEL) (08/28/2024 3:29 PM CDT) Pathologist [facility] SODIUM 141 136 - 145 mmol/L 08/29/2024 8:37 AM CDT [facility] POTASSIUM 5.7(H) 3.5 - 5.1 mmol/L 08/29/2024 8:37 AM CDT [facility] CHLORIDE 107 98 - 107 mmol/L 08/29/2024 8:37 AM CDT [facility] CO2, VENOUS 28 22 - 30 mmol/L 08/29/2024 8:37 AM CDT [facility] ANION GAP 11.7 <18.0 mmol/L 08/29/2024 8:37 AM CDT [facility] GLUCOSE 86 70 - 99 mg/dL 08/29/2024 8:37 AM CDT [facility] BUN 8(L) 9 - 21 mg/dL 08/29/2024 8:37 AM CDT [facility] CREATININE, BLOOD 1.02 0.70 - 1.30 mg/dL 08/29/2024 8:37 AM T [facility] BUN/CREATININE RATIO 8(L) 12 - 20 ratio 08/29/2024 8:37 AM T [facility] TOTAL PROTEIN 7.4 6.0 - 8.0 g/dL 08/29/2024 8:37 AM CDT [facility] ALBUMIN 4.5 3.5 - 5.0 g/dL 08/29/2024 8:37 AM T [facility] A/G RATIO 1.6 1.0 - 2.2 08/29/2024 8:37 AM T [facility] CALCIUM 9.2 8.7 - 10.5 mg/dL 08/29/2024 8:37 AM [facility] T BILI 0.5 0.2 - 1.2 mg/dL 08/29/2024 8:37 AM CDT [facility] SGOT (AST) 25 <43 U/L 08/29/2024 8:37 AM T [facility] SGPT (ALT) 17 <56 U/L 08/29/2024 8:37 AM CDT [facility] ALKALINE PHOSPHATASE 47 40 - 150 U/L 08/29/2024 8:37 AM T [facility] IS THE PATIENT REQUIRED TO BE FASTING? Yes 08/29/2024 8:37 AM CDT [facility] HAS THE PATIENT BEEN FASTING? Yes 08/29/2024 8:37 AM CDT [facility] GFR, ESTIMATED >60 >=60 08/29/2024 8:37 AM CDT [facility] Comment: Creatinine Clearance is the preferred criteria for selecting drug dose adjustments in renally impaired patients. The GFR is provided as additional pertinent clinical information. GFR is reported in mL/min/1.73 sq m. Calculation based on the Chronic Kidney Disease Epidemiology Collaboration (CKD- EPI) equation refit without adjustment for race. GFR, EST. >60 >=60 025 8:37 AM CDT [facility] GFR, EST. NONAFRICAN >60 >=60 08/29/2024 8:37 AM CDT [facility] Blood Venipuncture / Unknown 08/28/2024 3:29 PM CDT 08/28/2024 3:29 PM CDT Iván Dinero PAC CHEMISTRY ORDERABLES Final R esult [facility] [address] [place] [address] * ANTI THYROID PEROXIDASE ANTIBODY (08/28/2024 3:29 PM CDT) Thyroid peroxidase antibody <3 <6 IU/mL 08/29/2024 3:51 PM CDT [facility] Blood Venipuncture / Unknown 08/28/2024 3:29 PM CDT 08/28/2024 3:29 PM CDT us Iván Dinero PAC CHEMISTRY ORDERABLES Final R esult [facility] [address] [place] [place] [address], [place] * DILATED EYE EXAM (08/05/2023 12:00 AM CDT) 08/05/2023 us Provider Scan PROCEDURE/MINOR SURGICAL ORDERAB LES Final Result SCAN from Last 3 Months or Most Recently Relevant to Health Maintenance Insurance [employer] C[employer] Advance Directives * Full Code (Latest Code Status on File) Date Activated Date Inactivated Comments 09/03/2023 9:22 PM CPR-Full Treat ment: FULL ARREST: Attempt Resuscitation/CPR wit intubation and mechanical ventilation. PRE-ARREST: Use entire range of life support measures to stabilize the patient. Care Teams Temperature Regulator Pyrometer Relationship Specialty Start Date End Date Iván Dinero, PAC [address] [place] [address] PCP - General Physician Retail Sales Specialist 10/03/22 Arcelia Merlos APRN, CRISIS COUNSELOR [address] [address] Nurse Practitioner Advanced Practice Nurse 10/13/22
[2024-10-02] MEDS: ASPIRIN 81 MG CHEWABLE TABLET 324 MG PO (08:22)
--- NOTE | 2024-10-02 08:28 | ED.CHESTPAIN ---
HPI - Chest Pain General Chief Complaint: Chest Pain Stated Complaint: chest pain Time Seen by Provider: 10/02/24 08:16 History of Present Illness HPI narrative: This is a 44-year-old male with history of diabetes who presents to the ED for chest pain. Patient states that 4 days ago, he was sitting at dinner when he had onset of left upper chest pain with associated diaphoresis and confusion. He states the episode lasted about 30 minutes. He states that today, he had a sensation of a knot in that area was concerned prompting him to come the ED. No prior cardiac history that he is aware of. No family history of cardiac disease. He currently vapes and quit smoking 3 years ago. Denies fevers, chills, cough, congestion, shortness of breath. Related Data Home Medications ?Medication ?Instructions ?Recorded ?Confirmed ?Last Taken ?Type duloxetine 60 mg capsule,delayed 60 mg PO DAILY 11/28/19 Unknown History release hydroxyzine HCl 25 mg tablet 25 mg PO TID PRN 11/28/19 Unknown History [id number] 300 mcg-K 60 1 tablet PO DAILY 11/28/19 Unknown History mcg-lycop 600 mcg-lutein 300 mcg tablet (Centrum Silver Men) omega-3 fatty acids 1,000 mg 1,000 mg PO DAILY 11/28/19 Unknown History capsule (Fish Oil Concentrate) omeprazole 20 mg tablet,delayed 20 mg PO DAILY 11/28/19 Unknown History release Allergies Allergy/AdvReac Type Severity Reaction Status Date / Time No Known Allergies Allergy Verified 10/02/24 08:20 Review of Systems Review of Systems: Gen.: Denies fevers or chills Eyes: Denies eye pain or visual change ENT: Denies congestion Respiratory: Denies shortness of breath or cough CV: As per HPI GI: Denies abdominal pain nausea, emesis or diarrhea denies burning, urgency, frequency or hematuria Musculoskeletal: Denies back pain or muscle pain Neuro: Denies numbness, tingling, weakness or focal weakness Skin: Denies rash Except as documented, all other systems reviewed and negative PMF Past Medical History Medical History Sleep apnea Anxiety Depression Diabetes mellitus HTN (hypertension) Surgical History Surgical History [place] teeth removed Family History Family History Mother Depression Father Bipolar disorder Other Hypertension Social History Social History Smoking status: Former smoker Tobacco type: cigarettes and e-cigarettes/vaping Smoking end date: 02/06/18 Additional smoking assessment comments: Pt vapes now Alcohol intake: current Alcohol use details: rarely Substance use: current Substance use type: marijuana Gender identity (if verbalized by the patient): Male Exam Narrative: APPEARANCE: No acute distress, nontoxic, resting in bed EYES: EOMI HEENT: Normocephalic, atraumatic, OMM RESPIRATORY: No respiratory distress Clear to auscultation bilaterally with no rhonchi wheezing or rales. CARDIOVASCULAR: Regular rate and rhythm without murmurs rubs or gallops. No tenderness to palpation. ABDOMINAL: Soft, nontender, nondistended, no rebound or guarding MUSCULOSKELETAl: Moves all extremities. No clubbing, cyanosis or edema. NEURO: Awake and alert. Following commands, speech normal, no focal deficits SKIN:: Warm, dry. No rashes lesions or abrasions PSYCHIATRIC: Normal affect/mood, Course Vital Signs Vital signs: Vital Signs Temperature 97.6 F 10/02/24 08:15 Pulse Rate 98 10/02/24 08:15 Respiratory Rate 16 10/02/24 08:15 Blood Pressure 144/90 H 10/02/24 08:15 Pulse Oximetry 100 10/02/24 08:15 Oxygen Delivery Room Air 10/02/24 08:15 Temperature 97.6 F 10/02/24 08:15 Pulse Rate 86 10/02/24 12:33 Respiratory Rate 18 10/02/24 12:33 Blood Pressure 133/84 10/02/24 12:33 Pulse Oximetry 100 10/02/24 12:33 Oxygen Delivery Room Air 10/02/24 08:15 MDM - Chest Pain MDM Narrative Medical decision making narrative: 44-year-old male who presented to the ED for chest pain. Under initial evaluation, patient was in no acute distress, afebrile, hemodynamically stable. Heart and lungs are clear. Abdomen soft and nontender. Initial EKG showed no concerning findings. Labs without significant abnormality. Initial maradiaga negative. Repeat troponin negative. Heart score is 3. Low suspicion for any cardiac damage at this time. He would benefit from cardiology evaluation so he was given a referral to Dr. Meza, cardiology. Patient was agreeable to this plan. Given strict return precautions. Differential Diagnosis Differential diagnosis: Likely pneumothorax, stable angina, unstable angina pectoris, atypical chest pain, costochondritis and chest pain Medical Records Data Attestation: I reviewed the patient's medical records. Lab Data Attestation: I reviewed the patient's lab results. 10/02/24 08:23 10/02/24 08:23 Labs: Lab Results 10/02/24 10/02/24 Range/Units 08:23 11:49 WBC 10.8 H (4.5-10.0) K/mm3 RBC 5.09 (4.6-6.20) M/mm3 Hgb 15.1 (14.0-18.0) g/dL Hct 46.9 (42.0-52.0) % MCV 92.1 (80-100) fl MCH 29.7 (26-34) pg MCHC 32.2 (32-36) g/dl RDW 12.2 (11.5-14.5) % Plt Count 376 H (150-375) k/mm3 MPV 10.8 H (7.4-10.4) fl Immature Gran % (Auto) 0.5 (0-0.5) % Neut % (Auto) 53.4 (45.5-73.1) % Lymph % (Auto) 30.6 (18.3-44.2) % [place] % (Auto) 9.0 H (2.6-8.5) % Eos % (Auto) 5.5 H (0-4.4) % Baso % (Auto) 1.0 (0.2-1.2) % Lymph # (Auto) 3.29 H (0.9-3.2) K/mm3 [place] # (Auto) 1.0 H (0.1-0.6) K/mm3 Eos # (Auto) 0.6 H (0-0.3) K/mm3 Baso # (Auto) 0.1 (0.0-0.1) K/mm3 Abs Immat Gran (auto) 0.05 H (0.00-0.031) K/mm3 Absolute Neuts (auto) 5.8 (1.3-6.7) K/mm3 Absolute Nucleated RBC 0.000 (0.0-0.012) K/mm3 Nucleated RBC % 0.0 (0.0-0.2) % PT 13.2 (11.1-14.7) Seconds INR 1.0 APTT 28.4 (22.3-36.8) Seconds Sodium 139 (137-145) mmol/L Potassium 4.5 (3.4-5.0) mmol/L Chloride 102 (98-107) mmol/L Carbon Dioxide 30 (22-30) mmol/L Anion Gap 7 (4-12) mmol/L BUN 13 (9-20) mg/dL Creatinine 0.94 (0.7-1.3) mg/dL Estim Creat Clear Calc 95 ml/min Estimated GFR > 60 (59 - ) Glucose 81 (65-110) mg/dL Calcium 9.7 (8.4-10.2) mg/dL Total Bilirubin 1.0 (0.2-1.3) mg/dL AST 27 (17-59) U/L ALT 15 (6-50) U/L Alkaline Phosphatase 57 (38-126) U/L Troponin I < 0.012 < 0.012 (0.000-0.034) ng/mL Total Protein 8.3 H (6.3-8.2) g/dL Albumin 4.7 (3.5-5.1) g/dL Lipase 188 (23-300) U/L Imaging Data Radiologist's impression: Impressions Chest X-Ray 10/02/24 09:04 Impression: No acute cardiopulmonary abnormality. ECG Data EKG #1: Attestation: I personally reviewed and interpreted this ECG as follows: ECG completion date: 10/02/24 ECG completion time: 08:18 Prior ECG tracings: not available for review Interpretation: Peewee's rhythm rate of 88, normal axis, normal intervals, Q-waves in 3 and AVF, no acute ST or T-wave changes EKG #2: ECG completion date: 10/02/24 ECG completion time: 11:40 Prior ECG tracings: available for review Interpretation: Normal sinus rhythm rate of 76, normal axis, normal intervals, Q-waves in 3, no ST or T-wave changes, no change from prior Discharge Plan Discharge Clinical Impression: Chest pain Qualifiers: Chest pain type: unspecified Qualified Code(s): R07.9 - Chest pain, unspecified Patient Disposition: Home Condition: Stable Instructions: Antibiotic Form, Chest Pain (ED) Additional Instructions: Labs are reassuring and showed no evidence of heart damage at this time. Your given a referral to Dr. Meza, cardiology, follow-up with their office in the next week for re-evaluation. Follow-up with the PCP in the next week. Return to ED for any new or worsening symptoms. Patient Language: Lao Prescriptions: No Action duloxetine 60 mg capsule,delayed release(DR/EC) 60 mg PO DAILY hydroxyzine HCl 25 mg tablet 25 mg PO TID PRN omega-3 fatty acids [Fish Oil Concentrate] 1,000 mg capsule 1,000 mg PO DAILY Centrum Silver Men 300-600-300 mcg tablet 1 tablet PO DAILY omeprazole 20 mg tablet,delayed release (DR/EC) 20 mg PO DAILY metformin 500 mg tablet 500 mg PO BID Qty: 180 1RF Rx Instructions: Start taking 500 mg twice a day x 1 week and then increase to 1000 mg in the morning and 500 in the evening. Follow-up/Referrals: Joey Meza MD [Physician, Cardiology] UNKNOWN,DOCTOR [Primary Care Provider] Stand Alone Forms: Work/School Release IP
[2024-10-02 08:31] LABS: Hematocrit 46.9 % (42.0-52.0); Hemoglobin 15.1 g/dL (14.0-18.0); Immature Granulocyte Percent A 0.5 % (0-0.5); Lymphocytes Absolute Auto 3.29 K/mm3 (0.9-3.2); Mean Corpuscular HGB Conc 32.2 g/dl (32-36); Mean Corpuscular Hemoglobin 29.7 pg (26-34); Mean Corpuscular Volume 92.1 fl (80-100); Nucleated Red Blood Cells Absolute Auto 0.000 K/mm3 (0.0-0.012); Nucleated Red Blood Cells Perc 0.0 % (0.0-0.2); Platelet Count Result 376 k/mm3 (150-375); Red Blood Count 5.09 M/mm3 (4.6-6.20); White Blood Count 10.8 K/mm3 (4.5-10.0)
[2024-10-02 08:41] LABS: Alanine Aminotransferase 15 U/L (6-50); Albumin Level 4.7 g/dL (3.5-5.1); Alkaline Phosphatase 57 U/L (38-126); Anion Gap 7 mmol/L (4-12); Aspartate Amino Transferase 27 U/L (17-59); Bilirubin,Total 1.0 mg/dL (0.2-1.3); Blood Urea Nitrogen 13 mg/dL (9-20); Calcium 9.7 mg/dL (8.4-10.2); Carbon Dioxide 30 mmol/L (22-30); Chloride 102 mmol/L (98-107); Estimated CRCL calculation 95 ml/min; Estimated Glomerular Filt Rate > 60; Glucose 81 mg/dL (65-110); Lipase 188 U/L (23-300); Potassium 4.5 mmol/L (3.4-5.0); Sodium 139 mmol/L (137-145); Total Protein 8.3 g/dL (6.3-8.2)
[2024-10-02 08:48] LABS: INR 1.0; Partial Thromboplastin Time 28.4 Seconds (22.3-36.8); Prothrombin Time 13.2 Seconds (11.1-14.7)
[2024-10-02 08:52] LABS: Troponin I < 0.012 ng/mL (0.000-0.034)
--- NOTE | 2024-10-02 11:36 | ECG_ITS ---
Test Date: 2024-10-02 11:40:13 Measurements Intervals [place] Rate: 76 P: 52 MT: 160 QRS: 40 QRSD: 95 T: 43 QT: 365 QTc: 411 Interpretive Statements SINUS RHYTHM CONSIDER INFERIOR INFARCT, AGE INDETERMINATE ABNORMAL ECG Compared to ECG 10/02/2024 08:18:11 No significant changes Electronically Signed On 10-02-2024 12:01:49 CDT by Marcus Kohler D.O.
[2024-10-02 12:18] LABS: Troponin I < 0.012 ng/mL (0.000-0.034)
== END 2024-10-02 12:35 | disposition home or self-care (01) ==
PROVIDERS: Emergency Provider Student in an Organized Health Care Education/Training Program
DX: R07.9 Chest pain, unspecified (principal); R94.31 Abnormal electrocardiogram [ECG] [EKG]; G47.30 Sleep apnea, unspecified; F41.9 Anxiety disorder, unspecified; F32.A Depression, unspecified; E11.9 Type 2 diabetes mellitus without complications; I10 Essential (primary) hypertension
CPT/HCPCS: 36415; 71046; 80053; 83690; 84484; 85025; 85610; 85730; 93005; 99284; A9270